=== PATIENT | male | born 2000 | race African-American/Black ===

== ENCOUNTER 2020-05-01 16:28 | Emergency (ER) | payer MEDICAID ==
[~2020-05-01] VITALS: Ht 165.1 cm; Wt 52.0 kg
[2020-05-01] MEDS ORDERED: TETANUS, DIPHTHERIA, PERTUSSIS VAC/PF 0.5ML (>7YR OLD) IM ONE (17:00)
[2020-05-01] MEDS ORDERED: LIDOCAINE HCL/PF 1% 10 MG/ML 5ML VIAL IJ ONE (17:00)
[2020-05-01] MEDS ORDERED: BACITRACIN ZINC OINT UDPKT TOP ONE (17:00)
[2020-05-01] MEDS ORDERED: ONDANSETRON HCL 4MG/2ML INJ IM ONE (18:00)
[2020-05-01] MEDS ORDERED: MORPHINE SULFATE 10 MG/ML CPJ IM ONE (18:00)
[2020-05-01] MEDS ORDERED: KETOROLAC 30MG/ML VIAL IM ONE (19:15)
[2020-05-01 21:31] VITALS: BP 122/68
== END 2020-05-01 21:32 | disposition home or self-care (01) ==
LOC: ER 16:28
DX: S01.511A Laceration without foreign body of lip, initial encounter (principal); S16.1XXA Strain of muscle, fascia and tendon at neck level, initial encounter; S09.8XXA Other specified injuries of head, initial encounter; S40.211A Abrasion of right shoulder, initial encounter; S80.212A Abrasion, left knee, initial encounter; S80.211A Abrasion, right knee, initial encounter; V43.62XA Car passenger injured in collision with other type car in traffic accident, initial encounter; Y93.89 Activity, other specified; Y92.488 Other paved roadways as the place of occurrence of the external cause
CPT/HCPCS: 12013; 70450; 70486; 72125; 73030; 73560; 90471; 90715; 96372; 99285; J1885; J2270; J2405; J3490